=== PATIENT | female | born 1965 | race Caucasian/White ===

== ENCOUNTER 2020-11-13 21:04 | Emergency (ER) | payer MEDICARE, OTHER ==
[~2020-11-13] VITALS: Ht 150 cm; Wt 57.0 kg
[2020-11-13] MEDS ORDERED: RT-ALBUTEROL INHALER HFA (VENTOLIN HFA) 18 GM IH ONE (21:09)
[2020-11-13] MEDS ORDERED: RT-ALBUTEROL/IPRATROPIUM 3 ML (DUONEB) VIAL ONE (21:09)
[2020-11-13 21:10] VITALS: BP 151/92
[2020-11-13] MEDS ORDERED: methylPREDNISolone 125 MG (Solu-MEDROL) VIAL IV STA (21:13)
[2020-11-13] MEDS ORDERED: RT-ALBUTEROL SULF 2.5 MG/3 ML PRE-MIX VIAL INH STA (21:13)
[2020-11-13] MEDS ORDERED: CEFEPIME INJECTION 1,000 MG in WATER (STERILE) FOR INJECTION 10 ML IV ONE (21:15)
[2020-11-13] MEDS ORDERED: RT-ALBUTEROL/IPRATROPIUM 3 ML (DUONEB) VIAL INH ONE (21:15)
[2020-11-13] MEDS ORDERED: VANCOMYCIN INJECTION 750 MG in NS (IVPB) 100 ML IV ONE (21:15)
[2020-11-13] MEDS ORDERED: NS IV 1000 ML 1,000 ML IV SCH (21:15)
--- NOTE | 2020-11-13 21:21 | ED Respiratory ---
General Stated Complaint: SOA Source: patient, EMS Exam Limitations: no limitations History of Present Illness Date Seen by Provider: November 13, 2020 Time Seen by Provider: 20:50 Initial Comments Patient presents ER by EMS from home with chief complaint of shortness of air for the past couple days with T-max of 101 today. She was admitted to the hospital couple weeks ago for pneumonia. She has a history of asthma and has been wheezing and short of air. She had oxygen sats in the 80s and took her nebulizer treatment which did not help much. She says the nebulizer from EMS did help her however. She still feels quite short of breath and has a productive cough. She is afraid that her pneumonia is not gone yet. She has been tested frequently for COVID-19 but has not had opportunity to get the vaccines yet. No nausea chest pain diarrhea or constipation Allergies and Home Medications Allergies Coded Allergies: Penicillins (Verified Allergy, Unknown, 11/13/20) naproxen (Verified Allergy, Unknown, 11/13/20) Patient Home Medication List Home Medication List Reviewed: Yes Review of Systems Review of Systems Constitutional: chills, fever, malaise EENTM: No ear discharge, No ear pain Respiratory: cough, phlegm, short of breath, wheezing Cardiovascular: No chest pain, No edema, No palpitations Gastrointestinal: No abdominal pain, No nausea, No vomiting Genitourinary: No discharge, No dysuria Musculoskeletal: No back pain, No joint pain All Other Systems Reviewed Negative Unless Noted: Yes Past Ronlpez-Jzvfba-Qofksf Hx Patient Social History Alcohol Use: Denies Use Smoking Status: Never a Smoker Physical Exam Vital Signs - First Documented 11/13/20 21:10 Temp 36.7 Pulse 122 Resp 33 B/P (MAP) 151/92 (111) Pulse Ox 100 O2 Delivery Non Rebreather O2 Flow Rate 15.00 Capillary Refill : Height: '" Weight: lbs. oz. kg; BMI Method: General Appearance: WD/WN, moderate distress Eyes: Bilateral Eye Normal Inspection, Bilateral Eye PERRL, Bilateral Eye EOMI HEENT: PERRL/EOMI, pharynx normal Neck: full range of motion, normal inspection Respiratory: respiratory distress, accessory muscle use, rhonchi, wheezing Cardiovascular: normal peripheral pulses, regular rate, rhythm Gastrointestinal: normal bowel sounds, non tender, soft Extremities: non-tender, normal capillary refill Neurologic/Psychiatric: alert, normal mood/affect, oriented x 3 Skin: normal color, warm/dry Focused Exam Lactate Level 11/13/20 21:15: Lactic Acid Level 1.25 Lactic Acid Level Laboratory Tests Test 11/13/20 21:15 Lactic Acid Level 1.25 MMOL/L (0.50-2.00) Progress/Results/Core Measures Suspected Sepsis SIRS Temperature: Pulse: Respiratory Rate: Laboratory Tests 11/13/20 21:15: White Blood Count 8.4 Blood Pressure / Mean: 11/13/20 21:15: Lactic Acid Level 1.25 Laboratory Tests 11/13/20 21:15: Creatinine 0.95, Platelet Count 435H, Total Bilirubin 0.3 11/13/20 21:47: INR Comment 1.0 Results/Orders Lab Results Laboratory Tests Test 11/13/20 21:15 11/13/20 21:18 11/13/20 21:35 11/13/20 21:47 Range/Units White Blood Count 8.4 4.3-11.0 10^3/uL Red Blood Count 4.89 3.80-5.11 10^6/uL Hemoglobin 9.9 L 11.5-16.0 g/dL Hematocrit 34 L 35-52 % Mean Corpuscular Volume 70 L 80-99 fL Mean Corpuscular Hemoglobin 20 L 25-34 pg Mean Corpuscular Hemoglobin Concent 29 L 32-36 g/dL Red Cell Distribution Width 25.1 H 10.0-14.5 % Platelet Count 435 H 130-400 10^3/uL Mean Platelet Volume 9.2 9.0-12.2 fL Immature Granulocyte % (Auto) 0 % Neutrophils (%) (Auto) 71 42-75 % Lymphocytes (%) (Auto) 12 12-44 % Monocytes (%) (Auto) 8 0-12 % Eosinophils (%) (Auto) 7 0-10 % Basophils (%) (Auto) 1 0-10 % Neutrophils # (Auto) 6.0 1.8-7.8 10^3/uL Lymphocytes # (Auto) 1.1 1.0-4.0 10^3/uL Monocytes # (Auto) 0.6 0.0-1.0 10^3/uL Eosinophils # (Auto) 0.6 H 0.0-0.3 10^3/uL Basophils # (Auto) 0.1 0.0-0.1 10^3/uL Immature Granulocyte # (Auto) 0.0 0.0-0.1 10^3/uL Sodium Level 135 135-145 MMOL/L Potassium Level 4.7 3.6-5.0 MMOL/L Chloride Level 100 98-107 MMOL/L Carbon Dioxide Level 22 21-32 MMOL/L Anion Gap 13 5-14 MMOL/L Blood Urea Nitrogen 8 7-18 MG/DL Creatinine 0.95 0.60-1.30 MG/DL Estimat Glomerular Filtration Rate > 60 BUN/Creatinine Ratio 8 Glucose Level 134 H 70-105 MG/DL Lactic Acid Level 1.25 0.50-2.00 MMOL/L Calcium Level 8.8 8.5-10.1 MG/DL Corrected Calcium 9.0 8.5-10.1 MG/DL Total Bilirubin 0.3 0.1-1.0 MG/DL Aspartate Amino Transf (AST/SGOT) 20 5-34 U/L Alanine Aminotransferase (ALT/SGPT) 13 0-55 U/L Alkaline Phosphatase 124 40-136 U/L Total Protein 7.0 6.4-8.2 GM/DL Albumin 3.7 3.2-4.5 GM/DL SARS-CoV-2 RNA (RT-PCR) Negative Not Detecte Blood Gas Puncture Site L RADIAL Blood Gas Patient Temperature 36.7 Arterial Blood pH 7.42 7.37-7.43 Arterial Blood Partial Pressure CO2 40 35-45 MMHG Arterial Blood Partial Pressure O2 81 79-93 MMHG Arterial Blood HCO3 26 23-27 MMOL/L Arterial Blood Total CO2 27.3 21.0-31.0 MMOL/L Arterial Blood Oxygen Saturation 97 94-100 % Arterial Blood Base Excess 2.0 -2.5-2.5 MMOL/L [place] Test YES-POS Blood Gas Ventilator Setting NO Blood Gas Inspired Oxygen 15 L Prothrombin Time 13.7 12.2-14.7 SEC INR Comment 1.0 0.8-1.4 Activated Partial Thromboplast Time 26 24-35 SEC Test 11/13/20 22:47 Range/Units Urine Color YELLOW Urine Clarity CLEAR Urine pH 7.5 5-9 Urine Specific [place] 1.010 L 1.016-1.022 Urine Protein NEGATIVE NEGATIVE Urine Glucose (UA) NEGATIVE NEGATIVE Urine Ketones NEGATIVE NEGATIVE Urine Nitrite NEGATIVE NEGATIVE Urine Bilirubin NEGATIVE NEGATIVE Urine Urobilinogen 0.2 < = 1.0 MG/DL Urine Leukocyte Esterase NEGATIVE NEGATIVE Urine RBC (Auto) NEGATIVE NEGATIVE Urine RBC NONE /HPF Urine WBC 0-2 /HPF Urine Squamous Epithelial Cells 0-2 /HPF Urine Renal Epithelial Cells NONE /HPF Urine Crystals NONE /LPF Urine Bacteria NEGATIVE /HPF Urine Casts NONE /LPF Urine Mucus NEGATIVE /LPF Urine Culture Indicated CULTURE PENDING Micro Results Microbiology 11/13/20 Influenza Types A,B Antigen (JEREMY) - Final, Complete My Orders Orders - KARO LOPEZ Arterial Blood Gas (11/13/20 21:12) Cbc With Automated Diff (11/13/20 21:13) Comprehensive Metabolic Panel (11/13/20 21:13) Blood Culture (11/13/20 21:13) Sputum Culture (11/13/20 21:13) Urinalysis (11/13/20 21:13) Urine Culture (11/13/20 21:13) Protime With Inr (11/13/20 21:13) Partial Thromboplastin Time (11/13/20 21:13) Chest 1 View, Ap/Pa Only (11/13/20 21:13) Ed Iv/Invasive Line Start (11/13/20 21:13) Ed Iv/Invasive Line Start (11/13/20 21:13) O2 (11/13/20 21:13) Remove Rings In Anticipation O (11/13/20 21:13) Lactic Acid Analyzer (11/13/20 21:13) Ns Iv 1000 Ml (Sodium Chloride 0.9%) (11/13/20 21:15) Cefepime Injection (Maxipime Injection) (11/13/20 21:15) Vancomycin Injection (Vancomycin Injecti (11/13/20 21:15) Vancomycin Injection (Vancomycin Injecti (11/13/20 22:15) Albuterol Pre-Mix Nebs (Rt) (Proventil (11/13/20 21:13) Albuterol/Ipra Inhalation Soln (Duoneb I (11/13/20 21:15) Methylprednisolone Sod Succ (Solu-Medrol (11/13/20 21:13) Svn Small Volume Nebulizer (11/13/20 21:13) Albuterol/Ipra Inhalation Soln (Duoneb I (11/13/20 21:09) Albuterol Inhaler (Ventolin Hfa) (11/13/20 21:09) Covid 19 Inhouse Test (11/13/20 23:20) Influenza A And B Antigens (11/13/20 23:20) Medications Given in ED Current Medications Medications Dose Ordered Sig/Juvenal Route Start Time Stop Time Status Last Admin Dose Admin Albuterol/ Ipratropium 3 ml ONCE ONCE INH 11/13/20 21:15 11/13/20 21:16 DC 11/13/20 21:35 3 ML Cefepime HCl 1000 mg/Sterile Water 10 ml @ 200 mls/hr ONCE ONCE IV 11/13/20 21:15 11/13/20 21:17 DC 11/13/20 21:34 200 MLS/HR Vancomycin HCl 500 mg/Sodium Chloride 100 ml @ 100 mls/hr ONCE ONCE IV 11/13/20 22:15 11/13/20 23:14 DC 11/13/20 21:35 100 MLS/HR Vancomycin HCl 750 mg/Sodium Chloride 100 ml @ 100 mls/hr ONCE ONCE IV 11/13/20 21:15 11/13/20 22:14 DC 11/13/20 21:34 100 MLS/HR Vital Signs/I&O 11/13/20 11/13/20 11/13/20 21:10 21:10 21:39 Temp 36.7 Pulse 122 Resp 33 B/P (MAP) 151/92 (111) Pulse Ox 100 100 99 O2 Delivery Non Rebreather Non Rebreather Non Rebreather O2 Flow Rate 15.00 10.00 11/14/20 00:00 Intake Total 1210 ml Balance 1210 ml Capillary Refill : Progress Note #1: Time: 21:20 Progress Note Hour-long, ABG, labs septic work-up. Suspect COVID-19 so we will test her for that and give her just 1 L of fluids to start. Cefepime and vancomycin. Her 25 mg Solu-Medrol Progress Note #2: Time: 22:30 Progress Note Patient became concerned about whether she could keep her dog here. correspondence section supervisor was consulted and it was determined since she did not have any papers for her dog she would not be allowed to keep it on campus while she was in the hospital. She decided that she would rather not stay here then and despite staff's explaining to her that she could have worsening outcomes up to and including or disability the patient chose to leave AGAINST MEDICAL ADVICE. The plan from here was she was going to follow-up at [facility]. Diagnostic Imaging Diagonstic Imaging: Xray Plain Films/CT/US/NM/MRI: chest Comments [facility]. [place], [place] NAME: [facility] REC#: [id number] PT STATUS: DEP ER : 1965 PHYSICIAN: KARO LOPEZ MD ADMIT DATE: 11/13/20/ER Draft Date of Exam:11/13/20 CHEST 1 VIEW, AP/PA ONLY EXAMINATION: Chest 1 view HISTORY: Sepsis. Shortness of breath. COMPARISON: None available. FINDINGS: Patchy and consolidative opacities are visualized in the mid and lower right lung. No large pleural effusion or pneumothorax. The cardiac silhouette is unremarkable. There is calcified aortic atherosclerotic plaque. No acute osseous abnormalities. IMPRESSION: 1. Opacities in the mid and lower right lung, concerning for pneumonia. Dictated on workstation # [id number] Dict: 11/14/20 0556 Trans: 11/14/20 0559 MARY [id number] Interpreted by: FRANK NGUYEN DO Electronically signed by: Reviewed: Reviewed by Me Departure Impression Primary Impression: Asthma attack Qualified Codes: J45.901 - Unspecified asthma with (acute) exacerbation Additional Impression: Pneumonia Qualified Codes: J18.9 - Pneumonia, unspecified organism Disposition: AGAINST MEDICAL ADVICE Condition: Against Medical Advice Departure-Patient Inst. Decision time for Depature: 22:30 Referrals: NO,LOCAL PHYSICIAN (PCP) Primary Care Physician Patient Instructions: Pneumonia, Adult ED, Asthma, Adult (DC) Add. Discharge Instructions: Cefdinir 1 tablet twice a day with food. Azithromycin as directed. Follow-up with your primary care doctor in 1 to 2 weeks for reevaluation. Return to the nearest ER promptly if you are having worsening shortness of breath or other worrisome symptoms. Scripts Azithromycin (Azithromycin) 250 Mg Tablet 250 MG PO UD, #6 TAB TAKE 2 TABLETS ON DAY ONE THEN TAKE 1 TABLET DAILY FOR FOUR MORE DAYS Prov: KARO LOPEZ 11/14/20 Cefdinir (Cefdinir) 300 Mg Capsule 300 MG PO BID for 10 Days, #20 CAP 0 Refills Prov: KARO LOPEZ 11/14/20 KARO LOPEZ November 13, 2020 21:21
[2020-11-13 21:25] LABS: HEMOGLOBIN 9.9 g/dL (11.5-16.0); WHITE BLOOD COUNT 8.4 10^3/uL (4.3-11.0)
[2020-11-13 21:26] LABS: BASOPHILS # (AUTO) 0.1 10^3/uL (0.0-0.1); BASOPHILS % (AUTO) 1 % (0-10); EOSINOPHILS # (AUTO) 0.6 10^3/uL (0.0-0.3); EOSINOPHILS % (AUTO) 7 % (0-10); HEMATOCRIT 34 % (35-52); LYMPHOCYTES # (AUTO) 1.1 10^3/uL (1.0-4.0); LYMPHOCYTES % (AUTO) 12 % (12-44); MEAN CORPUSCULAR HEMOGLOBIN 20 pg (25-34); MEAN CORPUSCULAR HGB CONC 29 g/dL (32-36); MEAN CORPUSCULAR VOLUME 70 fL (80-99); MEAN PLATELET VOLUME 9.2 fL (9.0-12.2); MONOCYTES # (AUTO) 0.6 10^3/uL (0.0-1.0); MONOCYTES % (AUTO) 8 % (0-12); NEUTROPHILS % (AUTO) 71 % (42-75); PLATELET COUNT 435 10^3/uL (130-400)
[2020-11-13 21:39] LABS: ALBUMIN 3.7 GM/DL (3.2-4.5); CHLORIDE 100 MMOL/L (98-107); POTASSIUM 4.7 MMOL/L (3.6-5.0); SODIUM 135 MMOL/L (135-145)
[2020-11-13 21:41] LABS: CALCIUM 8.8 MG/DL (8.5-10.1)
[2020-11-13 21:42] LABS: ABG OXYGEN SATURATION 97 % (94-100); ABG PCO2 40 MMHG (35-45); ABG PH 7.42 (7.37-7.43); ABG PO2 81 MMHG (79-93); ABG TCO2 27.3 MMOL/L (21.0-31.0)
[2020-11-13 21:42] LABS: GLUCOSE 134 MG/DL (70-105)
[2020-11-13 21:43] LABS: CARBON DIOXIDE 22 MMOL/L (21-32)
[2020-11-13 21:44] LABS: BILIRUBIN,TOTAL 0.3 MG/DL (0.1-1.0)
[2020-11-13 21:45] LABS: ALKALINE PHOSPHATASE 124 U/L (40-136)
[2020-11-13 21:45] LABS: ALLENS TEST YES-POS; INSPIRED O2 15 L; PATIENT TEMP 36.7; VENTILATOR NO
[2020-11-13 21:46] LABS: CREATININE SERUM 0.95 MG/DL (0.60-1.30); GFR ESTIMATED > 60
[2020-11-13 21:47] LABS: BUN/CREATININE RATIO 8
[2020-11-13 21:48] LABS: ALANINE AMINOTRANSFERASE 13 U/L (0-55)
[2020-11-13 22:03] LABS: PROTHROMBIN TIME PATIENT 13.7 SEC (12.2-14.7)
[2020-11-13] MEDS ORDERED: VANCOMYCIN INJECTION 500 MG in NS (IVPB) 100 ML IV ONE (22:15)
[2020-11-13 22:52] LABS: BILIRUBIN,URINE NEGATIVE (NEGATIVE); CLARITY,URINE CLEAR; COLOR,URINE YELLOW; GLUCOSE, URINE (UA) NEGATIVE (NEGATIVE); KETONES,URINE NEGATIVE (NEGATIVE); LEUKOCYTE ESTERASE ,URINE NEGATIVE (NEGATIVE); NITRITE,URINE NEGATIVE (NEGATIVE); PH,URINE 7.5 (5-9); PROTEIN,URINE NEGATIVE (NEGATIVE)
[2020-11-13 22:59] LABS: BACTERIA,URINE NEGATIVE /HPF; SQUAMOUS EPITHELIAL CELL,UR 0-2 /HPF; WBC,URINE 0-2 /HPF
--- NOTE | 2020-11-14 05:59 | Diagnostic Imaging Report ---
EXAMINATION: Chest 1 view HISTORY: Sepsis. Shortness of breath. COMPARISON: None available. FINDINGS: Patchy and consolidative opacities are visualized in the mid and lower right lung. No large pleural effusion or pneumothorax. The cardiac silhouette is unremarkable. There is calcified aortic atherosclerotic plaque. No acute osseous abnormalities. IMPRESSION: 1. Opacities in the mid and lower right lung, concerning for pneumonia. Dictated by: Dictated on workstation # [id number]
[2020-11-14] MEDS ORDERED: AZIT250T12 PO (06:21)
[2020-11-14] MEDS ORDERED: CEFD300C3 PO (06:21)
== END 2020-11-13 23:51 | disposition left against medical advice (07) ==
LOC: ER 21:11
DX: J45.901 Unspecified asthma with (acute) exacerbation (principal); J18.9 Pneumonia, unspecified organism; Z20.822 Contact with and (suspected) exposure to COVID-19; Z88.0 Allergy status to penicillin; Z88.8 Allergy status to other drugs, medicaments and biological substances
CPT/HCPCS: 71045; 80053; 81000; 82805; 83605; 85025; 85610; 85730; 87040; 87088; 87804; 94640 ×2; 94760; 99285; U0002; 36415; 87635

== ENCOUNTER 2020-11-18 03:18 | Emergency (ER) | payer MEDICARE, OTHER ==
[~2020-11-18] VITALS: Ht 150 cm; Wt 57.0 kg
[~2020-11-18 03:18] MED LIST: AZIT250T12 PO; CEFD300C3 PO
[2020-11-18] MEDS ORDERED: RT-ALBUTEROL/IPRATROPIUM 3 ML (DUONEB) VIAL INH ONE ×2 (03:30→04:30)
[2020-11-18] MEDS ORDERED: methylPREDNISolone 125 MG (Solu-MEDROL) VIAL IVP ONE (03:30)
[2020-11-18 03:39] LABS: BASOPHILS # (AUTO) 0.1 10^3/uL (0.0-0.1); BASOPHILS % (AUTO) 2 % (0-10); EOSINOPHILS # (AUTO) 0.5 10^3/uL (0.0-0.3); EOSINOPHILS % (AUTO) 7 % (0-10); HEMATOCRIT 33 % (35-52); HEMOGLOBIN 9.6 g/dL (11.5-16.0); LYMPHOCYTES # (AUTO) 1.4 10^3/uL (1.0-4.0); LYMPHOCYTES % (AUTO) 19 % (12-44); MEAN CORPUSCULAR HEMOGLOBIN 20 pg (25-34); MEAN CORPUSCULAR HGB CONC 29 g/dL (32-36); MEAN CORPUSCULAR VOLUME 70 fL (80-99); MEAN PLATELET VOLUME 8.8 fL (9.0-12.2); MONOCYTES # (AUTO) 0.7 10^3/uL (0.0-1.0); MONOCYTES % (AUTO) 9 % (0-12); NEUTROPHILS # (AUTO) 4.7 10^3/uL (1.8-7.8); NEUTROPHILS % (AUTO) 63 % (42-75); PLATELET COUNT 510 10^3/uL (130-400); WHITE BLOOD COUNT 7.4 10^3/uL (4.3-11.0)
[2020-11-18 03:49] LABS: ALBUMIN 3.6 GM/DL (3.2-4.5); CHLORIDE 101 MMOL/L (98-107); POTASSIUM 4.4 MMOL/L (3.6-5.0); SODIUM 136 MMOL/L (135-145)
[2020-11-18 03:50] LABS: CALCIUM 9.2 MG/DL (8.5-10.1)
[2020-11-18 03:51] LABS: GLUCOSE 131 MG/DL (70-105)
[2020-11-18 03:52] LABS: TOTAL PROTEIN 6.9 GM/DL (6.4-8.2)
[2020-11-18 03:53] LABS: BILIRUBIN,TOTAL 0.3 MG/DL (0.1-1.0); CARBON DIOXIDE 23 MMOL/L (21-32)
[2020-11-18 03:55] LABS: ALKALINE PHOSPHATASE 130 U/L (40-136); CREATININE SERUM 0.61 MG/DL (0.60-1.30); GFR ESTIMATED > 60
[2020-11-18 03:56] LABS: BUN/CREATININE RATIO 11
[2020-11-18 03:58] LABS: ALANINE AMINOTRANSFERASE 16 U/L (0-55); MAGNESIUM 1.9 MG/DL (1.6-2.4)
[2020-11-18] MEDS ORDERED: RT-ALBUTEROL SULF 2.5 MG/3 ML PRE-MIX VIAL INH STA (04:17)
--- NOTE | 2020-11-18 04:24 | ED Respiratory ---
General Chief Complaint: Respiratory Problems Stated Complaint: SOB Nursing Triage Note: BROUGHT IN BY [facility] C/O SOA. Source: patient Exam Limitations: no limitations History of Present Illness Date Seen by Provider: November 18, 2020 Time Seen by Provider: 03:19 Initial Comments This 55-year-old woman presents to the emergency room via EMS with complaints of wheezing and shortness of breath. She has significant asthma and is a smoker. She was seen in this ER November 13 and was diagnosed with pneumonia and asthma exacerbation. Admission was advised but she elected to leave AMA. She did receive prescriptions for Omnicef and azithromycin, but she did not pick them up. She is visiting here from [place] and has run out of her inhaled bronchodilators. She denies any fever. She presents with her service dog. Allergies and Home Medications Allergies Coded Allergies: Penicillins (Verified Allergy, Unknown, 11/13/20) naproxen (Verified Allergy, Unknown, 11/13/20) Home Medications Albuterol/Ipratropium 4 Gm Aero, 1 PUFF IH QID Prescribed by: VIC DECKER on 11/18/20604 Azithromycin 250 Mg Tablet, 250 MG PO UD TAKE 2 TABLETS ON DAY ONE THEN TAKE 1 TABLET DAILY FOR FOUR MORE DAYS Prescribed by: KARO LOPEZ on 11/14/20620 Azithromycin 250 Mg Tablet, 250 MG PO DAILY Prescribed by: VIC DECKER on 11/18/20604 Cefdinir 300 Mg Capsule, 300 MG PO BID Prescribed by: KARO LOPEZ on 11/14/20620 Cefdinir 300 Mg Capsule, 300 MG PO BID Prescribed by: VIC DECKER on 11/18/20604 Ipratropium/Albuterol Sulfate 3 Ml Ampul.neb, 3 ML IH Q4H PRN for SHORTNESS OF BREATH Prescribed by: VIC DECKER on 11/18/20604 Prednisone 20 Mg Tab, 20 MG PO BID Prescribed by: VIC DECKER on 11/18/20604 Patient Home Medication List Home Medication List Reviewed: Yes Review of Systems Review of Systems Constitutional: no symptoms reported EENTM: no symptoms reported Respiratory: see HPI Cardiovascular: no symptoms reported Gastrointestinal: no symptoms reported Genitourinary: no symptoms reported : No Musculoskeletal: no symptoms reported Skin: no symptoms reported Psychiatric/Neurological: No Symptoms Reported Hematologic/Lymphatic: No Symptoms Reported Past Npoefde-Alcpza-Hdlfir Hx Past Med/Social Hx: Reviewed Nursing Past Med/Soc Hx Patient Social History Alcohol Use: Denies Use Drug of Choice: meth Smoking Status: Current Everyday Smoker Type Used: Cigarettes 2nd Hand Smoke Exposure: Yes Recent Infectious Disease Expo: No Recent Hopitalizations: No Immunizations Up To Date Tetanus Booster (TDap): Unknown Seasonal Allergies Seasonal Allergies: No Past Medical History Surgeries: Yes Section, Gallbladder, Orthopedic Respiratory: Yes Asthma, COPD Cardiac: Yes Hypertension Neurological: No : 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 oz. 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 tested, no motor/sensory deficits, alert, normal mood/affect, oriented x 3 Skin: normal color, warm/dry Progress/Results/Core Measures Suspected Sepsis Recent Fever Within 48 Hours: No Infection Criteria Present: None New/Unexplained Altered Menta: No Sepsis Screen: No Definite Risk SIRS Temperature: Pulse: 105 Respiratory Rate: 31 Laboratory Tests 11/18/20 03:30: White Blood Count 7.4 Blood Pressure 140 /108 Mean: 119 Laboratory Tests 11/18/20 03:30: Creatinine 0.61, Platelet Count 510H, Total Bilirubin 0.3 Results/Orders Lab Results Laboratory Tests Test 11/18/20 03:30 Range/Units White Blood Count 7.4 4.3-11.0 10^3/uL Red Blood Count 4.77 3.80-5.11 10^6/uL Hemoglobin 9.6 L 11.5-16.0 g/dL Hematocrit 33 L 35-52 % Mean Corpuscular Volume 70 L 80-99 fL Mean Corpuscular Hemoglobin 20 L 25-34 pg Mean Corpuscular Hemoglobin Concent 29 L 32-36 g/dL Red Cell Distribution Width 24.0 H 10.0-14.5 % Platelet Count 510 H 130-400 10^3/uL Mean Platelet Volume 8.8 L 9.0-12.2 fL Immature Granulocyte % (Auto) 0 % Neutrophils (%) (Auto) 63 42-75 % Lymphocytes (%) (Auto) 19 12-44 % Monocytes (%) (Auto) 9 0-12 % Eosinophils (%) (Auto) 7 0-10 % Basophils (%) (Auto) 2 0-10 % Neutrophils # (Auto) 4.7 1.8-7.8 10^3/uL Lymphocytes # (Auto) 1.4 1.0-4.0 10^3/uL Monocytes # (Auto) 0.7 0.0-1.0 10^3/uL Eosinophils # (Auto) 0.5 H 0.0-0.3 10^3/uL Basophils # (Auto) 0.1 0.0-0.1 10^3/uL Immature Granulocyte # (Auto) 0.0 0.0-0.1 10^3/uL Sodium Level 136 135-145 MMOL/L Potassium Level 4.4 3.6-5.0 MMOL/L Chloride Level 101 98-107 MMOL/L Carbon Dioxide Level 23 21-32 MMOL/L Anion Gap 12 5-14 MMOL/L Blood Urea Nitrogen 7 7-18 MG/DL Creatinine 0.61 0.60-1.30 MG/DL Estimat Glomerular Filtration Rate > 60 BUN/Creatinine Ratio 11 Glucose Level 131 H 70-105 MG/DL Calcium Level 9.2 8.5-10.1 MG/DL Corrected Calcium 9.5 8.5-10.1 MG/DL Magnesium Level 1.9 1.6-2.4 MG/DL Total Bilirubin 0.3 0.1-1.0 MG/DL Aspartate Amino Transf (AST/SGOT) 17 5-34 U/L Alanine Aminotransferase (ALT/SGPT) 16 0-55 U/L Alkaline Phosphatase 130 40-136 U/L C-Reactive Protein High Sensitivity 2.06 H 0.00-0.50 MG/DL Total Protein 6.9 6.4-8.2 GM/DL Albumin 3.6 3.2-4.5 GM/DL My Orders Orders - VIC AMAYA MD Cbc With Automated Diff (11/18/20 03:25) Comprehensive Metabolic Panel (11/18/20 03:25) Hs C Reactive Protein (11/18/20 03:25) Magnesium (11/18/20 03:25) Ed Iv/Invasive Line Start (11/18/20 03:25) Chest 1 View, Ap/Pa Only (11/18/20 03:25) Albuterol/Ipra Inhalation Soln (Duoneb I (11/18/20 03:30) Svn Small Volume Nebulizer (11/18/20 03:25) Methylprednisolone Sod Succ (Solu-Medrol (11/18/20 03:30) Albuterol Pre-Mix Nebs (Rt) (Proventil (11/18/20 04:17) Albuterol/Ipra Inhalation Soln (Duoneb I (11/18/20 04:30) Svn Small Volume Nebulizer (11/18/20 04:17) Svn Small Volume Nebulizer (11/18/20 04:17) Magnesium 1 Gm/100 Ml Ivpb (Magnesium [place]oma[place] (11/18/20 04:30) Ns Iv 500 Ml (Sodium Chloride 0.9%) (11/18/20 04:30) Ceftriaxone For Iv Use (Rocephin For I (11/18/20 04:30) Azithromycin Tablet (Zithromax Tablet) (11/18/20 04:30) Ketorolac Injection (Toradol Injection) (11/18/20 05:45) Medications Given in ED Current Medications Medications Dose Ordered Sig/Juvenal Route Start Time Stop Time Status Last Admin Dose Admin Albuterol/ Ipratropium 3 ml ONCE ONCE INH 11/18/20 03:30 11/18/20 03:31 DC 11/18/20 03:33 3 ML Albuterol/ Ipratropium 3 ml ONCE ONCE INH 11/18/20 04:30 11/18/20 04:31 DC 11/18/20 04:26 3 ML Azithromycin 500 mg ONCE ONCE PO 11/18/20 04:30 11/18/20 04:31 DC 11/18/20 04:33 500 MG Ceftriaxone Sodium 1000 mg/ Sterile Water 10 ml @ 200 mls/hr ONCE ONCE IV 11/18/20 04:30 11/18/20 04:32 DC 11/18/20 04:33 200 MLS/HR Ketorolac Tromethamine 10 mg ONCE ONCE IVP 11/18/20 05:45 11/18/20 05:46 DC 11/18/20 05:56 10 MG Magnesium Sulfate/ Dextrose 100 ml @ 100 mls/hr ONCE ONCE IV 11/18/20 04:30 11/18/20 05:29 DC 11/18/20 04:26 100 MLS/HR Methylprednisolone Sodium Succinate 125 mg ONCE ONCE IVP 11/18/20 03:30 11/18/20 03:31 DC 11/18/20 03:33 125 MG Sodium Chloride 500 ml @ 0 mls/hr Q0M ONCE IV 11/18/20 04:30 11/18/20 04:31 DC 11/18/20 04:26 0 MLS/HR Vital Signs/I&O 11/18/20 11/18/20 03:20 05:54 Temp 36.8 36.6 Pulse 105 105 Resp 31 19 B/P (MAP) 140/108 (119) 143/76 (119) Pulse Ox 97 96 O2 Delivery OxyMask Nasal Cannula O2 Flow Rate 10.00 3.00 Capillary Refill : Less Than 3 Seconds Blood Pressure Mean: 119 Progress Note #1: Progress Note Patient received a DuoNeb treatment by EMS and another upon arrival to the ER. She also received a dose of Solu-Medrol 125 mg IV. She is still quite wheezy with decreased air movement. I am doubtful she has pneumonia as there is no fever, leukocytosis, or significant elevation in WBC. Chest x-ray looks mode rately improved from prior. 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 I have recommended that she be admitted for asthma/COPD exacerbation. Patient refuses admission. She states she will stay in the ER a few hours if necessary but she will not consent to admission. I have ordered an hour-long nebulizer treatment along with a 500 mL fluid bolus, magnesium, and antibiotics. Progress Note #2: Time: 06:09 Progress Note Patient received Rocephin and azithromycin. She completed an hour-long nebulizer treatment. She reports feeling better although she still has tight wheezing on exam. Nasal cannula was turned off for about 3 minutes and oxygen saturation stayed in the upper 90s. Toradol was given for her chronic hip pain. Due to persistent tight wheezing on exam, I strongly urged patient to be admitted for further monitoring. She declines and requests discharge. New prescriptions were sent to the pharmacy. She was strongly encouraged to fill the prescriptions this time and to quit smoking. See discharge instructions. Diagnostic Imaging Diagonstic Imaging: Xray Plain Films/CT/US/NM/MRI: chest Comments Chest x-ray viewed by me. Report not yet available. Compared with prior. T here is improvement in right lower lung infiltrate when compared with prior. Departure Impression Primary Impression: Asthma exacerbation Qualified Codes: J45.901 - Unspecified asthma with (acute) exacerbation Additional Impression: Right lower lobe pneumonia Qualified Codes: J18.9 - Pneumonia, unspecified organism Disposition: HOME, SELF-CARE Condition: Improved Departure-Patient Inst. Decision time for Depature: 05:45 Referrals: NO,LOCAL PHYSICIAN (PCP/Family) Primary Care Physician Patient Instructions: Pneumonia in Adults, Asthma, Adult (DC) Add. Discharge Instructions: Drink plenty of clear liquids to stay well-hydrated. Discontinue cigarette smoking. Complete your antibiotic prescribed. Prednisone as prescribed until you receive the prednisone from your primary care provider. Use your inhaled medications as prescribed. Call with questions or concerns. Return to the ER if symptoms worsen. Follow-up with your primary care provider as soon as possible. All discharge instructions reviewed with patient and/or family. Voiced understanding. Scripts Prednisone (Prednisone) 20 Mg Tab 20 MG PO BID, #8 TAB 0 Refills Prov: VIC AMAYA MD 11/18/20 Azithromycin (Azithromycin) 250 Mg Tablet 250 MG PO DAILY, #4 TAB 0 Refills Prov: VIC AMAYA MD 11/18/20 Cefdinir (Cefdinir) 300 Mg Capsule 300 MG PO BID, #20 CAP 0 Refills Prov: VIC AMAYA MD 11/18/20 Ipratropium/Albuterol Sulfate (Iprat-Albut 0.5-3(2.5) mg/3 ml) 3 Ml Ampul.neb 3 ML IH Q4H PRN for SHORTNESS OF BREATH, #20 EACH Prov: VIC AMAYA MD 11/18/20 Albuterol/Ipratropium (Combivent Respimat Inhal [place]) 4 Gm Aero 1 PUFF IH QID, #1 EA Prov: VIC AMAYA MD 11/18/20 VIC AMAYA MD November 18, 2020 04:24
[2020-11-18] MEDS ORDERED: NS IV 500 ML 500 ML IV ONE (04:30)
[2020-11-18] MEDS ORDERED: cefTRIAXone FOR IV USE 1,000 MG in WATER (STERILE) FOR INJECTION 10 ML IV ONE (04:30)
[2020-11-18] MEDS ORDERED: AZITHROMYCIN 250 MG TAB (ZITHROMAX) PO ONE (04:30)
[2020-11-18] MEDS ORDERED: MAGNESIUM 1 GM/100 ML IVPB 100 ML IV ONE (04:30)
[2020-11-18] MEDS ORDERED: KETOROLAC 30 MG/ML VIAL IVP ONE (05:45)
[2020-11-18] MEDS ORDERED: AZIT250T12 PO ×2 (05:52→06:05)
[2020-11-18] MEDS ORDERED: IPRA3AMP31 IH ×2 (05:52→06:05)
[2020-11-18] MEDS ORDERED: CEFD300C3 PO ×2 (05:52→06:05)
[2020-11-18] MEDS ORDERED: IPRA4AER IH ×2 (05:52→06:05)
[2020-11-18 05:54] VITALS: BP 143/76
[2020-11-18] MEDS ORDERED: PRD20T PO ×2 (05:56→06:05)
--- NOTE | 2020-11-18 06:21 | Diagnostic Imaging Report ---
INDICATION: Shortness of air. Compared 11/13 FINDINGS: Infiltrate in the right middle and lower lobe is improved in the interim with better visualization of the heart borders and diaphragm. The left lung is clear at follow-up. No pneumothorax. IMPRESSION: Improvements in infiltrates with no adverse change Dictated by: Dictated on workstation # [id number]
== END 2020-11-18 06:00 | disposition home or self-care (01) ==
LOC: EDUNIT# 03:18 → ER 03:19
DX: J45.901 Unspecified asthma with (acute) exacerbation (principal); J18.1 Lobar pneumonia, unspecified organism; I10 Essential (primary) hypertension; J44.9 Chronic obstructive pulmonary disease, unspecified; F17.210 Nicotine dependence, cigarettes, uncomplicated; Z88.0 Allergy status to penicillin; Z88.6 Allergy status to analgesic agent
CPT/HCPCS: 36415; 71045; 80053; 83735; 85025; 86141